=== PATIENT | male | born 1970 | race Caucasian/White ===

== ENCOUNTER 2024-08-24 06:20 | Day surgery (SDC) | payer BC, SELFPAY | END 2024-08-24 10:14 | disposition home or self-care (01) | LOC: GI 06:20 | PROVIDERS: ATTENDING PHYSICIAN Specialist | DX: K50.10 Crohn's disease of large intestine without complications (principal); K63.5 Polyp of colon; K62.89 Other specified diseases of anus and rectum; Z98.0 Intestinal bypass and anastomosis status | CPT/HCPCS: 45385; 45380; 88305 ==